=== PATIENT | female | born 1945 | race Two or more races ===

== ENCOUNTER 2021-10-22 10:28 | Emergency (ER) | payer OTHER ==
[~2021-10-22] VITALS: Ht 172.7 cm; Wt 81.6 kg
[2021-10-22] MEDS ORDERED: FUROSEMIDE 40 MG/4 ML VIAL IV ONE (10:45)
[2021-10-22] MEDS ORDERED: LABETALOL HCL 5 MG/ML 4ML SYRINGE IV ONE (10:45)
[2021-10-22 11:15] LABS: Eosinophils # (auto) 0.5 10 ^3/uL (0-0.8); Monocytes # (auto) 0.6 10 ^3/uL (0-1.3); White Blood Cell 9.1 10^3/uL (4.4-10.8)
[2021-10-22 11:16] LABS: Basophils # (auto) 0.1 10 ^3/uL (0-0.2); Basophils % (auto) 0.9 % (0.0-2.0); Eosinophils % (auto) 5.6 % (0.0-7.0); Hematocrit 41.5 % (36.0-46.0); Hemoglobin 14.2 g/dL (12.2-16.2); Lymphocytes # (auto) 2.4 10 ^3/uL (0.4-5.4); Lymphocytes % (auto) 25.9 % (10.0-50.0); Mean Corpuscular Hemoglobin 34.6 pg (28.0-32.0); Mean Corpuscular Hgb Conc. 34.2 g/dL (32.0-36.0); Mean Corpuscular Volume 101.2 fL (80.0-100.0); Monocytes % (auto) 6.2 % (0.0-12.0); Neutrophils # (auto) 5.6 10 ^3/uL (1.6-8.6); Neutrophils % (auto) 61.4 % (37.0-80.0); Nucleated Red Blood Cells % 0.1 %; Red Cell Distribution Width 13.6 % (11.8-14.3)
[2021-10-22 11:52] LABS: Albumin 3.7 g/dL (3.4-5.0); Calcium 9.1 mg/dL (8.5-10.1); Potassium 3.5 mmol/L (3.5-5.1)
[2021-10-22 11:56] LABS: Bilirubin, Total 0.7 mg/dL (0.2-1.0); Total Protein 7.3 g/dL (6.4-8.2)
[2021-10-22] MEDS ORDERED: IOHEXOL 350 MG/ML 100ML IJ ONE (15:13)
[2021-10-22 16:56] LABS: Urine Bacteria NONE SEEN /hpf (None Seen); Urine Blood Negative /uL (Negative); Urine Specific Gravity 1.015 (1.001-1.035); Urine WBC <1 /hpf (0 - 5)
[2021-10-22 17:16] VITALS: BP 161/71
== END 2021-10-22 17:34 | disposition home or self-care (01) ==
LOC: EDBD 10:28 → ER 10:28
DX: I16.0 Hypertensive urgency (principal); I11.0 Hypertensive heart disease with heart failure; I50.9 Heart failure, unspecified; J44.9 Chronic obstructive pulmonary disease, unspecified
CPT/HCPCS: 36415; 71045; 71275; 80053; 81001; 83880; 84484; 85025; 85379; 93005; 96374; 96375; 99285; J1940; J3490; Q9967